=== PATIENT | male | born 1990 | race Caucasian/White ===

== ENCOUNTER 2019-02-21 06:06 | Emergency (ER) | payer SELFPAY ==
[2019-02-21] MEDS ORDERED: ONDANSETRON 4 MG/2 ML VIAL IVP ONE (06:15)
[2019-02-21] MEDS ORDERED: NS(*) 0.9% 1000 ML BAG 1,000 ML IV ONE ×2 (06:15→06:35)
--- NOTE | 2019-02-21 06:24 | ER Report ---
History and Physical Time Seen By MD: 06:18 (RAJIV ORELLANA DO) Time Seen By MD: 07:00 (LORRIE SOSA DO) HPI/ROS CHIEF COMPLAINT: NVD HISTORY OF PRESENT ILLNESS: Pt states he went to bed fine and woke up at 2am with Vomiting and diarrhea. Vomiting up yellow material. When asked how many ep isodes of Vomiting and diarrhea was told "many". Pt is currently vomiting now. Pt ate dinner at 6pm in [place] and had what her mother ate and she feels fine. Pt c/o of epigastric pain since the vomiting occurred. Mom states pt has hx of narcotic/drug abuse. Pt states he last used approx a week ago. PT states he smoked heroin at that time. no fevers. no chills. REVIEW OF SYSTEMS: Constitutional: No fever, no chills. Eyes: No discharge. ENT: No sore throat. Cardiovascular: No chest pain, no palpitations. Respiratory: No cough, no shortness of breath. Gastrointestinal: + abdominal pain, + vomiting Genitourinary: No hematuria. Musculoskeletal: No back pain. Skin: No rashes. Neurological: No headache. (RAJIV ORELLANA DO) HPI/ROS Please see Dr. Orellana's note (LORRIE SOSA DO) Allergies: Coded Allergies: No Known Drug Allergies (Unverified , 02/21/19) Home Meds Active Scripts Ondansetron 4 Mg Odt (ONDANSETRON 4 MG ODT) 4 Mg Tab.rapdis, 4 MG PO ONCE, #20 TAB Prov:LORRIE SOSA DO 02/21/19 Past Medical/Surgical History Pmhx: drug abuse Pshx: neg (RAJIV ORELLANA DO) Reviewed Nurses Notes: Yes (RAJIV ORELLANA DO) Hx Smoking: Yes Hx Alcohol Use: No (RAJIV ORELLANA DO) Constitutional Vital Sign - Last 24 Hours 02/21/19 02/21/19 02/21/19 02/21/19 06:12 06:21 06:30 06:36 Temp 97.8 Pulse 45 45 ??? Resp 24 0 B/P (MAP) 138/89 107/65 (79) Pulse Ox 97 96 97 O2 Delivery Room Air 02/21/19 02/21/19 02/21/19 06:51 07:00 07:30 Pulse 43 Resp 25 24 B/P (MAP) 116/77 (90) 119/73 (88) 125/92 (103) Pulse Ox 97 87 Intake and Output 02/20/19 02/20/19 02/21/19 15:00 23:00 07:00 Intake Total 1000 ml Balance 1000 ml (LORRIE SOSA DO) Physical Exam General Appearance: The patient is alert, has no immediate need for airway protection and no signs of toxicity. Eyes: Pupils equal and round no pallor or injection, EOMI ENT: no pharyngeal erythema or exudates, Mucous membranes are moist, TM are nl b/l Respiratory: There are no retractions, lungs are clear to auscultation. Cardiovascular: Regular rate and rhythm. pulses are equal and symmetrical Gastrointestinal: Abdomen is soft with mild epigastric tenderness, no masses, bowel sounds normal, no guarding, no rigidity or rebound Neurological: Cranial nerves II-XII grossly intact, no sensory or motor loss Skin: Warm and dry, no rashes. Musculoskeletal: Neck is supple non tender, no vertebral tenderness Extremities are nontender, nonswollen and have full range of motion. DIFFERENTIAL DIAGNOSIS: After history and physical exam differential diagnosis was considered for gastroenteritis, drug withdrawl, bowel obstruction (RAJIV ORELLANA DO) Physical Exam Please see Dr. Orellana's note (LORRIE SOSA DO) Medical Decision Making Data Points Result Diagram: 02/21/19 0617 02/21/19 0617 Laboratory Hematology Test 02/21/19 06:17 Red Blood Count 5.26 M/uL (4.00-5.60) Mean Corpuscular Volume 85.7 fL (80.0-96.0) Mean Corpuscular Hemoglobin 29.3 pg (26.0-33.0) Mean Corpuscular Hemoglobin Concent 34.2 g/dL (32.0-36.0) Red Cell Distribution Width 12.8 % (11.5-14.5) Mean Platelet Volume 8.5 fL (7.2-11.1) Neutrophils (%) (Auto) 76.6 % (39.4-72.5) Lymphocytes (%) (Auto) 19.2 % (17.6-49.6) Monocytes (%) (Auto) 3.4 % (4.1-12.4) Eosinophils (%) (Auto) 0.4 % (0.4-6.7) Basophils (%) (Auto) 0.4 % (0.3-1.4) Nucleated RBC Relative Count (auto) 0.0 /100WBC Neutrophils # (Auto) 8.4 K/uL (2.0-7.4) Lymphocytes # (Auto) 2.1 K/uL (1.3-3.6) Monocytes # (Auto) 0.4 K/uL (0.3-1.0) Eosinophils # (Auto) 0.0 K/uL (0.0-0.5) Basophils # (Auto) 0.0 K/uL (0.0-0.1) Nucleated RBC Absolute Count (auto) 0.00 K/uL Sodium Level 141 mmol/L (137-145) Potassium Level 3.9 mmol/L (3.5-5.0) Chloride Level 107 mmol/L (98-107) Carbon Dioxide Level 26 mmol/L (22-30) Blood Urea Nitrogen 11 mg/dl (9-21) Creatinine 0.90 mg/dl (0.66-1.25) Glomerular Filtration Rate Calc > 60.0 Random Glucose 128 mg/dl (75-110) Calcium Level 9.6 mg/dl (8.4-10.2) Total Bilirubin 0.4 mg/dl (0.2-1.3) Aspartate Amino Transf (AST/SGOT) 17 U/L (0-35) Alanine Aminotransferase (ALT/SGPT) 25 U/L (0-56) Alkaline Phosphatase 98 U/L (0-126) Total Protein 7.8 g/dl (6.3-8.2) Albumin 4.4 g/dl (3.5-5.0) Lipase 75 U/L (23-300) Helicobacter pylori IgG Antibody Negative (NEGATIVE) Chemistry Test 02/21/19 06:17 White Blood Count 11.0 k/uL (4.5-11.0) Red Blood Count 5.26 M/uL (4.00-5.60) Hemoglobin 15.4 g/dL (14.0-18.0) Hematocrit 45.1 % (42.0-52.0) Mean Corpuscular Volume 85.7 fL (80.0-96.0) Mean Corpuscular Hemoglobin 29.3 pg (26.0-33.0) Mean Corpuscular Hemoglobin Concent 34.2 g/dL (32.0-36.0) Red Cell Distribution Width 12.8 % (11.5-14.5) Platelet Count 388 K/uL (150-450) Mean Platelet Volume 8.5 fL (7.2-11.1) Neutrophils (%) (Auto) 76.6 % (39.4-72.5) Lymphocytes (%) (Auto) 19.2 % (17.6-49.6) Monocytes (%) (Auto) 3.4 % (4.1-12.4) Eosinophils (%) (Auto) 0.4 % (0.4-6.7) Basophils (%) (Auto) 0.4 % (0.3-1.4) Nucleated RBC Relative Count (auto) 0.0 /100WBC Neutrophils # (Auto) 8.4 K/uL (2.0-7.4) Lymphocytes # (Auto) 2.1 K/uL (1.3-3.6) Monocytes # (Auto) 0.4 K/uL (0.3-1.0) Eosinophils # (Auto) 0.0 K/uL (0.0-0.5) Basophils # (Auto) 0.0 K/uL (0.0-0.1) Nucleated RBC Absolute Count (auto) 0.00 K/uL Glomerular Filtration Rate Calc > 60.0 Calcium Level 9.6 mg/dl (8.4-10.2) Total Bilirubin 0.4 mg/dl (0.2-1.3) Aspartate Amino Transf (AST/SGOT) 17 U/L (0-35) Alanine Aminotransferase (ALT/SGPT) 25 U/L (0-56) Alkaline Phosphatase 98 U/L (0-126) Total Protein 7.8 g/dl (6.3-8.2) Albumin 4.4 g/dl (3.5-5.0) Lipase 75 U/L (23-300) Helicobacter pylori IgG Antibody Negative (NEGATIVE) (LORRIE SOSA DO) ED Course/Re-evaluation Clinical Indication for ER IV: Hydration, IV Access ED Course check labs, urine and medicate 02/21/2019 6:46:55 am PTs first liter is completed. Pt still nauseated and feels like he needs to vomit and have bm but vomiting has stopped with the zofran. will start second liter. PT states he last used heroin one week ago by smoking it. (RAJIV ORELLANA DO) ED Course I assumed patient care from Dr. Orellana at shift change. Patient had stopped vomiting after administration of antiemetic. Patient was given clonidine 0.1 mg due to recent history of heroin use approximately one week prior. Patient had significant improvement in symptoms. Labs were unremarkable. Patient is given prescription for Zofran for outpatient anti-medic treatment. Patient's mother and patient voiced understanding of plan. Recommend close follow-up with PCP. Return precautions provided. Decision to Disposition Date: February 21, 2019 Decision to Disposition Time: 07:59 (LORRIE SOSA DO) Depart Departure Latest Vital Signs Vital Signs Date Time Temp Pulse Resp B/P (MAP) Pulse Ox O2 Delivery O2 Flow Rate FiO2 02/21/19 07:30 24 125/92 (103) 87 02/21/19 07:00 43 02/21/19 06:12 97.8 Room Air (LORRIE SOSA DO) Impression: Primary Impression: Nausea & vomiting Condition: Improved Disposition: HOME OR SELF-CARE New Scripts Ondansetron 4 Mg Odt (ONDANSETRON 4 MG ODT) 4 Mg Tab.rapdis 4 MG PO ONCE, #20 TAB Prov: LORRIE SOSA DO 02/21/19 Patient Instructions: Acute Nausea and Vomiting (ED) Additional Instructions: Please drink plenty of water. Please return promptly if you develop worsening abdominal pain, inability keep down food or fluids, fevers, blood in the stools or urine. You may take 1 tablet of Zofran every 4-6 hours as needed for nausea and vomiting. Please follow up closely with your family doctor in the next 24-48 hours. RAJIV ORELLANA DO February 21, 2019 06:24 LORRIE SOSA DO February 21, 2019 07:21
[2019-02-21 06:31] LABS: PLATELET COUNT, AUTOMATED 388 K/uL (150-450)
[2019-02-21] MEDS ORDERED: cloNIDine HCL 0.1 MG TAB PO ONE (07:00)
[2019-02-21 08:00] VITALS: BP 109/64
[2019-02-21] MEDS ORDERED: ONDA4TAB9 PO (08:00)
== END 2019-02-21 08:10 | disposition home or self-care (01) ==
LOC: ER 06:21
DX: R11.2 Nausea with vomiting, unspecified (principal)
CPT/HCPCS: 83690; 85025; 86677; 96361; 96374; 99283; J2405; J7030; 82040; 82247; 82310; 82374; 82435; 82565; 82947; 84075; 84132; 84155; 84295; 84450; 84460; 84520